=== PATIENT | female | born 1990 | race Caucasian/White ===

== ENCOUNTER 2017-03-20 01:09 | Emergency (ER) | payer BC, OTHER ==
[~2017-03-20] VITALS: Ht 170.2 cm; Wt 117.9 kg
--- NOTE | 2017-03-20 01:51 | Diagnostic Imaging Report ---
CHEST 2 VIEWS, Technique: CHEST 2 VIEWS Comparison: None Clinical history: \S\PAIN WITH COUGHING TO RIGHT SIDE \[id number] \S\[id number] \S\Y DISCUSSION: Normal appearance of the heart, mediastinum, lungs and pleural spaces. No acute bony abnormality. IMPRESSION: No acute abnormality Signed by: Dr Jammie Harper MD on 03/20/2017 1:47 AM
[2017-03-20 02:36] VITALS: BP 129/86
== END 2017-03-20 02:52 | disposition home or self-care (01) ==
LOC: ER 01:09
DX: R07.89 Other chest pain (principal); R05 Cough; R10.11 Right upper quadrant pain
CPT/HCPCS: 71020; 99283